=== PATIENT | female | born 1960 | race Caucasian/White ===

== ENCOUNTER 2021-01-21 17:41 | Emergency (ER) | payer OTHER ==
[~2021-01-21 17:41] MED LIST: NAPROSYN500 MG PO
[2021-01-21 18:22] LABS: HEMOGLOBIN 15.4 gm/dl (12.3-15.3); RED BLOOD COUNT 5.06 M/UL (4.00-5.10); WHITE BLOOD COUNT 13.2 K/UL (4.5-11.0)
[2021-01-21 18:39] LABS: BUN/CREATININE RATIO 23 (0-10)
[2021-01-21] MEDS ORDERED: OMNICEF 300 MG300 MG PO (21:28)
== END 2021-01-21 21:37 | disposition home or self-care (01) ==
LOC: ER1 17:41
DX: N30.90 Cystitis, unspecified without hematuria (principal); E11.9 Type 2 diabetes mellitus without complications; I10 Essential (primary) hypertension; Z88.2 Allergy status to sulfonamides; Z88.5 Allergy status to narcotic agent; F17.210 Nicotine dependence, cigarettes, uncomplicated
CPT/HCPCS: 80053; 81001; 83690; 85025; 87077; 87086; 87186; 99284; Q9967